=== PATIENT | female | born 1995 | race Caucasian/White ===

== ENCOUNTER 2017-08-16 11:41 | Emergency (ER) | payer OTHER ==
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
[2017-08-16] MEDS ORDERED: Diphtheria,Pertussis(Acell),Tetanus Vaccine 0.5 ML Syringe IM ONE (13:35)
--- NOTE | 2017-08-16 13:56 | CR ---
EXAMINATION: PA chest radiograph. HISTORY: Shortness of breath. FINDINGS: The trachea is midline. The cardiomediastinal silhouette is within normal limits. No pulmonary infilt rates, effusions or pneumothorax. Osseous structures appear unremarkable. IMPRESSION: No acute cardiopulmonary process.
--- NOTE | 2017-08-16 14:03 | CR ---
EXAMINATION: Cervical spine HISTORY: Pain COMPARISON: None TECHNIQUE: AP and lateral views FINDINGS: The cervical spinal alignment is normal. The vertebral body heights and disc spaces appear well-maintained. There is no fracture or dislocation. Prevertebral soft tissues appear normal. IMPRESSION: Unremarkable cervical spine.
== END 2017-08-16 14:26 | disposition home or self-care (01) ==
LOC: MW.ED 11:41
DX: S13.4XXA Sprain of ligaments of cervical spine, initial encounter (principal); S09.90XA Unspecified injury of head, initial encounter; S00.91XA Abrasion of unspecified part of head, initial encounter; F17.210 Nicotine dependence, cigarettes, uncomplicated; Z23 Encounter for immunization; Z91.018 Allergy to other foods; V43.52XA Car driver injured in collision with other type car in traffic accident, initial encounter
CPT/HCPCS: 71010; 71010-26; 72040; 72040-26; 90471; 99283; 99283-25